=== PATIENT | female | born 1965 | race Two or more races ===

== ENCOUNTER → 2025-01-25 | Outpatient (CLI) | payer MEDICAID, SELFPAY ==
--- NOTE | 2025-01-25 09:30 | XR_ITS ---
Examination: Breast ultrasound, unilateral, left complete Date and time of exam: January 25, 2025 0936 hrs. Indications: Mammogram 07/24/2024 4 mm focal asymmetry upper outer left breast, history left breast biopsy September 15, 2012 negative, patient states left breast pain 2 months Technique: Real-time becerra scale ultrasonographic imaging performed left breast including all 4 quadrants as well as nipple retroareolar and axillary region. Findings: No cystic or solid mass Impression: BI-RADS Category 1: Negative study
--- NOTE | 2025-01-25 10:00 | XR_ITS ---
Examination: Diagnostic digital mammography, unilateral, left Computer aided detection 3-D breast Tomosynthesis, unilateral Date and time of exam: 01/25/2025, 9:45 AM Comparisons: March 2017 through March 2024 Indications: Six-month follow-up left focal asymmetry Technique: Nonmagnified MLO, CC views of the left breast have been obtained, reconstructed from 3-D Tomosynthesis images. R2 computer aided detection program utilized for evaluation of suspicious masses and/or abnormal calcifications. 3-D Tomosynthesis images obtained. Technologist: Findings: There are scattered areas of fibroglandular density. The previously described focal asymmetry does not persist on spot compression views and represents superimposition of normal fibroglandular tissue. No new grouped amorphous calcifications are seen in the lower outer quadrant. Otherwise, no evidence of abnormal masses or suspicious calcifications. Impression: New incompletely visualized grouped amorphous calcifications lower quadrant. Spot magnification CC and ML views are recommended for further characterization. BI-RADS category 0: Incomplete assessment; need additional imaging evaluation
== END | disposition home or self-care (01) ==
LOC: CDIM 09:07
PROVIDERS: PCP Nurse Practitioner Family; Referring Provider Nurse Practitioner Family; Visit Provider Nurse Practitioner Family
DX: N64.89 Other specified disorders of breast (principal); R92.8 Other abnormal and inconclusive findings on diagnostic imaging of breast; R92.1 Mammographic calcification found on diagnostic imaging of breast
CPT/HCPCS: 76641; 77061; 77065; G0279

== ENCOUNTER → 2025-03-14 | Outpatient (CLI) | payer MEDICAID, SELFPAY ==
--- NOTE | 2025-03-14 10:45 | XR_ITS ---
Examination: Breast ultrasound, unilateral, left complete Date and time of exam: March 11, 2025 1054 hours INDICATIONS: Mammogram January 25, 2025 amorphous calcifications lower quadrant left breast Technique: Real-time becerra scale ultrasonographic imaging performed left breast including all 4 quadrants as well as nipple retroareolar and axillary region. Findings: No breast mass 3.5 cm left axillary lymph node IMPRESSION: BI-RADS Category 2: Benign findings
--- NOTE | 2025-03-14 11:15 | XR_ITS ---
Examination: Diagnostic digital mammography, unilateral, left Computer aided detection 3-D breast Tomosynthesis, unilateral Date and time of exam: March 14, 2025 1112 hours INDICATIONS: Mammogram January 25, 2025 grouped amorphous calcifications lower quadrant left breast Technique: Nonmagnified MLO, CC views of the left breast have been obtained, reconstructed from 3-D Tomosynthesis images. R2 computer aided detection program utilized for evaluation of suspicious masses and/or abnormal calcifications. 3-D Tomosynthesis images obtained. Findings: Scattered areas of fibroglandular density Probably benign microcalcifications nipple level left breast lateral medial view Impression: BI-RADS category 3: Probably benign findings Recommend 1 additional 6 month left mammogram follow-up
== END | disposition home or self-care (01) ==
PROVIDERS: PCP Nurse Practitioner Family; Referring Provider Nurse Practitioner Family; Visit Provider Nurse Practitioner Family
DX: R92.332 Mammographic heterogeneous density, left breast (principal); R92.1 Mammographic calcification found on diagnostic imaging of breast
CPT/HCPCS: 76641; 77061; 77065; G0279

== ENCOUNTER → 2025-09-29 | Outpatient (CLI) | payer MEDICAID, SELFPAY ==
--- NOTE | 2025-09-29 14:00 | XR_ITS ---
Examination: Breast ultrasound, unilateral, left Date and time of exam: September 29, 2025, 1436 hours INDICATIONS: Mammogram March 14, 2025 microcalcifications nipple level left breast Technique: Real-time becerra scale ultrasonographic imaging performed left breast including all 4 quadrants as well as nipple retroareolar and axillary region. Findings: No cystic or solid mass IMPRESSION: BI-RADS Category 1: Negative study
--- NOTE | 2025-09-29 14:30 | XR_ITS ---
Examination: Diagnostic digital mammography, unilateral, left Computer aided detection 3-D breast Tomosynthesis, unilateral Date and time of exam: September 29, 2025, 1431 hours INDICATIONS: Mammogram January 25, 2025 grouped microcalcifications lower quadrant left breast Technique: Nonmagnified MLO, CC views of the left breast have been obtained, reconstructed from 3-D Tomosynthesis images. R2 computer aided detection program utilized for evaluation of suspicious masses and/or abnormal calcifications. 3-D Tomosynthesis images obtained. Findings: Scattered areas of fibroglandular density Benign-appearing calcifications Impression: BI-RADS category 2: Benign findings Return to yearly follow-up mammography
== END | disposition home or self-care (01) ==
PROVIDERS: PCP Nurse Practitioner Family; Referring Provider Nurse Practitioner Family; Visit Provider Nurse Practitioner Family
DX: R92.322 Mammographic fibroglandular density, left breast (principal); R92.1 Mammographic calcification found on diagnostic imaging of breast
CPT/HCPCS: 76641; 77061; 77065; G0279